=== PATIENT | female | born 1965 | race African-American/Black ===

== ENCOUNTER 2022-01-25 10:08 | Inpatient (IN) | payer BC, MEDICAID, OTHER ==
[~2022-01-25] VITALS: Ht 160 cm; Wt 61.2 kg
[~2022-01-25 10:08] MED LIST: BENA-8; MELO-104
[2022-01-25 11:34] LABS: HEMATOCRIT. 45.9 % (36.0-48.0); HEMOGLOBIN. 15.1 g/dL (12.0-16.0); MEAN CORPUSCULAR HEMOGLOBIN 30.8 pg (28.0-32.0); MEAN CORPUSCULAR VOLUME 93.8 fL (81.0-99.0); MEAN PLATELET VOLUME 9.7 fl (7.4-10.4); PLATELET 170 x1000/uL (130-400); RED BLOOD CELL COUNT 4.89 mill/uL (4.2-5.4)
[2022-01-25 11:43] LABS: CHLORIDE 109 mEq/L (98-107)
[2022-01-25] MEDS ORDERED: FUROSEMIDE 40MG/4ML VIAL IVP ONE (12:00)
[2022-01-25] MEDS ORDERED: ENALAPRIL 1.25MG/ML VIAL 1ML IV NR (12:00)
[2022-01-25] MEDS ORDERED: ENALAPRIL 2.5MG/2ML VIAL 2ML IV ONE (12:00)
[2022-01-25] MEDS ORDERED: MAGNESIUM/ALUMINUM HYDROXIDE/SIMETHICONE 30ML UDC PO PRN (12:45)
[2022-01-25] MEDS ORDERED: CLONIDINE 0.1MG TABLET PO PRN (12:45)
[2022-01-25] MEDS: ENOXAPARIN 40MG/0.4ML SYR SUBCUT SCH (13:05)
[2022-01-25 13:32] LABS: CLARITY URINE CLEAR (CLEAR); COLOR URINE YELLOW (YELLOW); KETONES URINE NEGATIVE (NEGATIVE); LEUKOCYTE ESTERASE URINE NEGATIVE (NEGATIVE); NITRITE URINE NEGATIVE (NEGATIVE); OCCULT BLOOD URINE NEGATIVE (NEGATIVE); PH URINE 7.5 (4.5-8.0); PROTEIN URINE NEGATIVE (NEGATIVE); SPECIFIC GRAVITY URINE 1.006 (1.005-1.030); UROBILINOGEN URINE 0.2 E.U./dL (0.2-1.0)
[2022-01-25 13:43] LABS: PLATELET ESTIMATE NORMAL
[2022-01-25] MEDS: CARVEDILOL 3.125 MG TABLET PO SCH (17:37)
[2022-01-25 21:00] VITALS: BP 124/89
[2022-01-25 22:00] VITALS: BP 124/89
[2022-01-25] MEDS ORDERED: AMLO5TAB88 PO (23:09)
[2022-01-25] MEDS ORDERED: PANT40SU PO (23:09)
[2022-01-25] MEDS ORDERED: CARV3.1242 PO (23:09)
[2022-01-25] MEDS ORDERED: OMEP20CA14 PO (23:09)
[2022-01-25] MEDS ORDERED: ALBU6.7H9 INH (23:09)
[2022-01-25] MEDS ORDERED: FURO20TA4 PO (23:09)
[2022-01-25] MEDS ORDERED: SACU1TAB PO (23:09)
[2022-01-25] MEDS ORDERED: FLUT9.9S BOTHNSTRLS (23:09)
[2022-01-26] VITALS: BP 104/67
[2022-01-26 04:00] VITALS: BP 130/86
[2022-01-26 05:45] LABS: HEMATOCRIT. 47.4 % (36.0-48.0); HEMOGLOBIN. 15.7 g/dL (12.0-16.0); MEAN CORPUSCULAR HEMOGLOBIN 30.5 pg (28.0-32.0); MEAN CORPUSCULAR VOLUME 91.9 fL (81.0-99.0); MEAN PLATELET VOLUME 9.5 fl (7.4-10.4); PLATELET 177 x1000/uL (130-400); RED BLOOD CELL COUNT 5.16 mill/uL (4.2-5.4); RED CELL DISTRIBUTION WIDTH 14.7 % (11.6-14.6)
[2022-01-26 05:54] LABS: CHLORIDE 104 mEq/L (98-107)
[2022-01-26 06:07] LABS: HDL CHOLESTEROL 80 mg/dL (40-59); LDL CHOLESTEROL 78 mg/dL (5-100); PHOSPHORUS 5.1 mg/dL (2.5-4.9); T4 FREE 1.08 ng/dL (0.76-1.46)
[2022-01-26 06:31] LABS: *AMPHETAMINES SCREEN URINE NEGATIVE (NEGATIVE); *BARBITURATES SCREEN URINE NEGATIVE (NEGATIVE); *BENZODIAZEPINES SCREEN URINE NEGATIVE (NEGATIVE); *COCAINE SCREEN URINE PRESUMTIVE POSITIVE (NEGATIVE); CANNABINOID URINE SCREEN NEGATIVE (NEGATIVE); METHADONE URINE SCREEN NEGATIVE (NEGATIVE); OPIATES URINE SCREEN NEGATIVE (NEGATIVE); PHENCYCLIDINE URINE SCREEN NEGATIVE (NEGATIVE)
[2022-01-26 08:16] VITALS: BP 134/87
[2022-01-26] MEDS: FUROSEMIDE 40MG/4ML VIAL IVP SCH (09:28)
[2022-01-26] MEDS: ENOXAPARIN 40MG/0.4ML SYR SUBCUT SCH (09:28)
[2022-01-26] MEDS: CARVEDILOL 3.125 MG TABLET PO SCH (09:29)
[2022-01-26 12:15] VITALS: BP 112/78
[2022-01-26 16:00] VITALS: BP 114/76
[2022-01-26] MEDS: LISINOPRIL 2.5MG TABLET PO SCH (16:44)
[2022-01-26 20:00] VITALS: BP 98/69
[2022-01-26] MEDS ORDERED: CARVEDILOL 6.25 MG TABLET PO SCH (21:00)
[2022-01-27] VITALS: BP 110/76
[2022-01-27 00:06] LABS: PLATELET ESTIMATE NORMAL
[2022-01-27 03:43] VITALS: BP 111/67
[2022-01-27 07:13] LABS: CHLORIDE 103 mEq/L (98-107)
[2022-01-27 07:32] LABS: HEMOGLOBIN. 15.7 g/dL (12.0-16.0); MEAN CORPUSCULAR HEMOGLOBIN 30.6 pg (28.0-32.0); MEAN CORPUSCULAR VOLUME 91.9 fL (81.0-99.0); MEAN PLATELET VOLUME 9.7 fl (7.4-10.4); PLATELET 191 x1000/uL (130-400); RED BLOOD CELL COUNT 5.11 mill/uL (4.2-5.4); RED CELL DISTRIBUTION WIDTH 14.7 % (11.6-14.6)
[2022-01-27 07:59] VITALS: BP 121/94
[2022-01-27] MEDS: FUROSEMIDE 40MG/4ML VIAL IVP SCH (08:44)
[2022-01-27] MEDS: LISINOPRIL 2.5MG TABLET PO SCH (08:46)
[2022-01-27] MEDS: ENOXAPARIN 40MG/0.4ML SYR SUBCUT SCH (08:46)
[2022-01-27] MEDS ORDERED: CARVEDILOL 6.25 MG TABLET PO SCH (09:00)
[2022-01-27 11:53] VITALS: BP 98/65
[2022-01-27 12:15] VITALS: BP 90/57
[2022-01-27 22:30] LABS: PLATELET ESTIMATE NORMAL
== END 2022-01-27 16:01 | disposition home or self-care (01) | DRG 194 ==
LOC: ER 10:08 → 6WST 12:34 → EDBEDREQ 12:38 → EDBEDREQTM 12:38 → ENRESERV 19:05
PROVIDERS: ADMIT Internal Medicine; ATTEND Internal Medicine
DX: I11.0 Hypertensive heart disease with heart failure (principal); I42.9 Cardiomyopathy, unspecified; F14.10 Cocaine abuse, uncomplicated; Z20.822 Contact with and (suspected) exposure to COVID-19; F17.290 Nicotine dependence, other tobacco product, uncomplicated; M19.90 Unspecified osteoarthritis, unspecified site; Z91.14 Patient's other noncompliance with medication regimen; Z88.6 Allergy status to analgesic agent; I50.23 Acute on chronic systolic (congestive) heart failure
CPT/HCPCS: 36415; 71045; 80048; 80053; 80061; 80076; 80305; 81003; 83735; 83880; 84100; 84439; 84443; 84484; 85025; 87426; 93005; 93306; 93970; 99285; C9803; J1650; J1940; J3490